=== PATIENT | female | born 1935 | race Caucasian/White ===

== ENCOUNTER 2020-09-16 15:25 | IRF | payer MEDICARE, MEDICAID, SELFPAY ==
--- NOTE | ~2020-09-16 | XR_ITS ---
EXAMINATION: XR barium swallow modified EXAM DATE: 09/25/2020 08:52 INDICATION: Dysphagia. TECHNIQUE: Modified barium esophagram was performed by myself to administered fluoroscopy, in conjun ction with speech pathologist who administered barium in varying consistencies as per speech patholog ist documentation. This was recorded on tape. The DAP for this procedure was 6 Gycm2. FINDINGS: Oral stage: Adequate function. Pharyngeal phase: Vallecular and piriform sinus pooling. Laryngeal penetration: None. Aspiration: None. Laryngeal sensitivity: Present. IMPRESSION: Patient tolerated oral feedings in the upright position. Please refer to speech patholo gist findings and specific feeding recommendations. Reviewed, dictated and finalized at location A. IELD DEFENCE GUARD IMPRESSION: Patient tolerated oral feedings in the upright position. Please r efer to speech pathologist findings and specific feeding recommendations.
--- NOTE | ~2020-09-16 | XR_ITS ---
EXAMINATION: XR chest 1V portable DATE: 09/27/2020 17:53 INDICATION: Cough, shortness of breath and wheezing TECHNIQUE: frontal view of the chest was obtained. COMPARISON: None FINDINGS: Patient is rotated slightly towards the left. Opacity between the apex of the normal sized heart and the left costophrenic angle without blunting of the cardiophrenic angle of the medial left lung base most likely related to pericardial fat pad and/or lingular atelectasis. No other airspace opacities, pulmonary edema, pleural effusion or pneumothorax. Tortuous and atherosclerotic thoracic aorta. Shirley cystectomy clips in the right upper quadrant. IMPRESSION: 1. Opacity at the lateral left lung base most likely related to paracardial fat pad and/or lingular a telectasis with differential including less likely pneumonia. Reviewed, dictated and finalized at [facility] BAY TECHNICIAN IMPRESSION: 1. Opacity at the lateral left lung base most likely related to paracardial fat pad and/or lingular atelectasis with differential including less likely pneumo lavern.
[2020-09-16 15:15] VITALS: BMI 40.4
[2020-09-16 15:40] VITALS: BP 141/60; PULSE 70; RESP 18; TEMP 36.7; O2SAT 100
--- NOTE | 2020-09-16 16:48 | ADMGEN ---
This patient, Oly Calderon, was admitted to [facility] Room 222-01. Patient/family oriented to hospital policies and general routines including ID bracelet, bed and alarms, visiting hours, pain management, procedures, bathroom and other care routines, personal items, smoking policy, room service/diet, and visiting hours. Information on how to activate the Rapid Response Team has been discussed. Patient/Family are encouraged to report perceived risks to care and to ask questions if they do not understand what they are told or what they should do.
[2020-09-16] MEDS: HEPARIN SODIUM 5,000 UNITS/ML VIAL 5000 UNITS SUB-Q (20:19)
[2020-09-16] MEDS: NIMODIPINE 30MG CAPSULE PO (21:44)
[2020-09-16 22:00] VITALS: BP 145/67; PULSE 75; RESP 18; TEMP 36.2; O2SAT 97
[2020-09-17] MEDS: NIMODIPINE 30MG CAPSULE PO ×6 (01:06→23:24)
[2020-09-17] MEDS: HEPARIN SODIUM 5,000 UNITS/ML VIAL 5000 UNITS SUB-Q ×3 (05:32→21:09)
[2020-09-17 05:34] LABS: Basophils Percent Auto 0.7 % (0.2-1.2); Eosinophils Absolute Auto 0.2 K/mm3 (0-0.3); Eosinophils Percent Auto 3.4 % (0-4.4); Hematocrit 25.5 % (37.0-47.0); Hemoglobin 8.1 g/dL (12.0-15.0); Immature Granulocyte Absolute 0.04 K/mm3 (0.00-0.031); Immature Granulocyte Percent A 0.7 % (0-0.5); Lymphocytes Absolute Auto 1.71 K/mm3 (0.9-3.2); Mean Corpuscular HGB Conc 31.8 g/dl (32-36); Mean Corpuscular Hemoglobin 29.5 pg (26-34); Mean Corpuscular Volume 92.7 fl (80-100); Monocytes Absolute Auto 0.7 K/mm3 (0.1-0.6); Monocytes Percent Auto 12.1 % (2.6-8.5); Neutrophils Absolute Auto 2.9 K/mm3 (1.3-6.7); Neutrophils Percent Auto 52.1 % (45.5-73.1); Platelet Count Result 301 k/mm3 (150-375); Red Blood Count 2.75 M/mm3 (4.2-5.4); Red Cell Distribution Width 17.2 % (11.5-14.5); White Blood Count 5.5 K/mm3 (4.5-10.0)
[2020-09-17 05:49] LABS: Anion Gap 7 mmol/L (8-16); Blood Urea Nitrogen 20 mg/dL (7-17); Calcium 8.8 mg/dL (8.4-10.2); Carbon Dioxide 31 mmol/L (22-30); Chloride 102 mmol/L (98-107); Estimated CRCL calculation 29 ml/min; Estimated Glomerular Filt Rate 36; Glucose 97 mg/dL (65-105); Sodium 140 mmol/L (137-145)
[2020-09-17 06:00] VITALS: BP 137/67; PULSE 74; RESP 19; TEMP 36.3; O2SAT 97
[2020-09-17 08:30] VITALS: PULSE 78; RESP 18; O2SAT 97
[2020-09-17 08:40] VITALS: PULSE 76
[2020-09-17] MEDS: METOPROLOL SUCCINATE EXT REL 50 MG TABCR PO (08:40)
[2020-09-17] MEDS: FUROSEMIDE 40 MG TABLET PO (08:40)
[2020-09-17] MEDS: ATORVASTATIN 10 MG TABLET PO (08:40)
[2020-09-17] MEDS: PANTOPRAZOLE 40 MG TABLET PO (08:40)
[2020-09-17] MEDS: buPROPion HCL 75 MG TABLET PO (08:41)
--- NOTE | 2020-09-17 08:49 | WPDREHABHP ---
H&P: HPI History of Present Illness Date/Time: 09/17/20 08:49 Chief complaint: Subarachnoid Hemorrhage Narrative: Oly Calderon is a 85 year old femaleHISTORY OF PRESENT ILLNESS: The patient's primary rehab impairment category is []Brain dysfunction nontraumatic The etiologic diagnosis is [] subarachnoid hemorrhage I saw this patient [id number] on [] September 17, 2020 at 8:30 a.m. The patient is a [] 85 years old right-handed female with a past medical history of bronchial asthma, COPD, gout, and hypertension presented to a local hospital on September 03, 2020 with severe headaches. The patient reported a sudden onset of severe headache after eating lunch with associated nausea and vomiting. She was taken to a local hospital where CT scan of the head demonstrated a diffuse subarachnoid hemorrhage. The patient was transferred to [facility] for further evaluation and management. CTA demonstrated a left MCA aneurysm Gallardo and Willson upon arrival was 3 with a Barber grade [address] Neurosurgery was consulted and the patient was admitted to Neurosurgery ICU. The patient was placed on Keppra 500 mg b.i.d. seizure prophylaxis and nimodipine for vasospasm prophylaxis. Cerebral angiogram was performed on September 04, [address] rivas for better characterization of angio architecture of the left middle cerebral artery bifurcation aneurysm the angiogram identified a left MCA bifurcation and left posteriorKatie in artery origin aneurysm, along with small right posterior communicating artery infundibulum. The patient underwent a left craniotomy for clipping of the aneurysm on September 04, 2020 with EVD insertion. Postoperatively the patient was extubated, she did require supplemental oxygen to maintain oxygen saturations but is now on room air. CASE FINISHING MACHINE ADJUSTER evaluated the patient and a modified barium swallow was performed on September 08, 2020 and the patient was placed on mechanical soft diet with nectar thickened liquids. She did have a bout of choking on September 12, 2020 and was made NPO with an NG-tube, the patient was re-evaluated by speech on September 14, 2020 and once again advanced to mechanical soft diet with nectar thickened liquids. She completed Keppra for seizure prophylaxis. She remains on Nimotop 60 mg q.4 hours oral for neuro protection. EVD was removed on September 12, 2020. Physical examination continues to reveal impaired balance decreased gross motor control and impaired mobility. She remains globally aphasic and is in Angelita 10 with her ability to onset simple questions. She is awake alert oriented times 2 to 3. She is on subcutaneous heparin for DVT prophylaxis with plan to DC with patient's consistently ambulating 150ft COVID the patient has not traveled outside the [place] or had contact with someone who is ill that has traveled outside the [place] in the past 21 days. The patient has not traveled to an area of the [place] that is experiencing known transmission of the Coronavirus and has not had close personal contact with anyone that has the patient does not have a fever the patient is not experiencing lower respiratory illness symptoms. Therapy was initiated at the acute care facility and the patient transferred to us from [facility] on September 16, 2020 FALLS OR SURGERIES: the patient has had major surgery this admission. The patient has had no falls in the past year. The patient has had no falls with injury in the past year. PAST MEDICAL HISTORY: Asthma, COPD, gout, hypertension, osteoporosis, pneumonia, syncope. PAST SURGICAL HISTORY: Appendectomy, cholecystectomy. SOCIAL HISTORY: Nonsmoker no alcohol or drug abuse FAMILY HISTORY: mother is diabetic type 2 who has history of cancer and a child has history of hypertension PRIOR LEVEL OF FUNCTION: Eating was [INDEPENDENT] Oral Care was [INDEPENDENT] Toileting Hygiene was [INDEPENDENT] Shower/Bathing was [INDEPENDENT] Upp
[2020-09-17 13:17] VITALS: BMI 40.4
[2020-09-17 14:00] VITALS: BP 146/58; PULSE 80; RESP 18; TEMP 37.3; O2SAT 99
--- NOTE | 2020-09-17 17:20 | ADMGEN ---
Late Entry. Patient admitted 09/16/2020 at 16:48. This patient, Oly Calderon, was admitted to [facility] Room 222-01. Patient/family oriented to hospital policies and general routines including ID bracelet, bed and alarms, visiting hours, pain management, procedures, bathroom and other care routines, personal items, smoking policy, room service/diet, and visiting hours. Information on how to activate the Rapid Response Team has been discussed. Patient/Family are encouraged to report perceived risks to care and to ask questions if they do not understand what they are told or what they should do.
[2020-09-17 21:44] VITALS: BP 134/59; PULSE 62; RESP 20; TEMP 36.5; O2SAT 96
[2020-09-17 22:22] VITALS: O2SAT 92
[2020-09-18] MEDS: NIMODIPINE 30MG CAPSULE PO ×6 (03:12→20:19)
[2020-09-18] MEDS: HEPARIN SODIUM 5,000 UNITS/ML VIAL 5000 UNITS SUB-Q ×3 (05:33→20:20)
[2020-09-18 06:00] VITALS: BP 102/67; PULSE 69; RESP 20; TEMP 36.3; O2SAT 97
[2020-09-18] MEDS: FUROSEMIDE 40 MG TABLET PO (09:46)
[2020-09-18] MEDS: PANTOPRAZOLE 40 MG TABLET PO (09:46)
[2020-09-18] MEDS: ATORVASTATIN 10 MG TABLET PO (09:46)
[2020-09-18 09:47] VITALS: PULSE 72
[2020-09-18] MEDS: METOPROLOL SUCCINATE EXT REL 50 MG TABCR PO (09:47)
[2020-09-18] MEDS: buPROPion HCL 75 MG TABLET PO (09:47)
[2020-09-18 14:00] VITALS: BP 126/53; PULSE 66; RESP 18; TEMP 36.4; O2SAT 96
--- NOTE | 2020-09-18 14:14 | RPD ---
INDIVIDUALIZED PLAN OF CARE FOR Oly Calderon Brief Synthesis of Pre-Admission Screen, Post-Admission Evaluation and Therapy Evaluations: The patient presents to rehab with a subarachnoid hemorrhage. Comorbidities include left MCA aneurysm, status post left craniotomy for clipping of left MCA and PComm aneurysms, asthma, COPD, gout, hypertension, headache, EVD insertion and removal, global aphasia, dysphagia, aspiration, respiratory insufficiency, and depression. The complexity of the patient's medical management, nursing, and therapy needs require an inpatient rehab hospital stay with a physician-led interdisciplinary team approach. The patient?s needs will be best met in an intensive program vs. at a lower level of care. The patient requires physician services for neurology services, medical oversight, and coordination of care. The patient needs physician monitoring and treatment of anemia, perioperative blood loss, monitoring for adverse reactions to new medications, monitoring of infection, and pain control. The patient requires nursing services for frequent neuro checks, anticoagulation therapy, medication management and education, pressure relief and skin care management, monitoring of labs, bowel and bladder training, and fall/safety precautions. Deficits include:ADLs, Balance, Cognition, Endurance, Family Training/Education, Mobility, Pain Management, ROM, Safety, Speech, Strength, Swallowing, and Transfers. Guest Service Representative/Case Management for: Discharge Planning and Patient/Family Counseling Physical Therapy: 5 days per week for 60 minutes. Treatments may include: Therapeutic Exercise, Gait Training, Neuromuscular Re-education, Transfer Training, Community Reintegration, Bed Mobility, Patient/Family Education, Wheelchair Mobility Group Therapy/Concurrent Therapy Rationales: -Improve attention span during functional activities in a distracted environment. -Enhance problem solving and/or adequate judgment skills during functional activities in a distracted environment. -Promote increased safety awareness in a distracted environment to reduce fall risk with functional tasks, transfers, and ambulation to allow a more safe, self-sufficient return to the home environment. -Improve dynamic balance skills to promote safety and independence with functional activities in a distracted environment for maximum gain. Occupational Therapy: 5 days per week for 60 minutes. Treatments may include: Therapeutic Exercise, Therapeutic Activity, Cognitive Training, Self-Care Transfer Training, Community Reintegration, Home Management, Patient/Family Education, Wheelchair Mobility Training, Energy Conservation Training Group Therapy/Concurrent Therapy Rationales: -Allow therapist to observe and teach generalization and carry-over of skills learned in individual therapy. -Enhance problem solving and sequencing skills during therapeutic activities in a distracted environment. -Promote increased safety awareness in a realistic setting to reduce fall risk with functional tasks due to visual and verbal distractions. -Increase functional level with ADLs, ADL transfers and use of adaptive equipment through therapeutic activities with others while promoting safety to allow a more safe, self-sufficient return home. Speech Therapy: 5 days per week for 60 minutes. Treatments may include: Dysphasia Therapy, Speech/Language/Communication Therapy, Cognitive Training, Patient/Family Education Group Therapy/Concurrent Therapy - Rationale: -Allow therapist to observe and teach generalization and carry-over of skills learned in individual therapy. -Improve comprehension skills with complex or abstract ideas through discussion in a realistic setting. -Enhance problem solving skills with complex issues during activities in a distracted environment. -Promote increased memory skills and concentration in a distracted environment for a safe transition home. -Improve attention and focus with langua
[2020-09-18 20:00] VITALS: PULSE 67; RESP 16; O2SAT 97
[2020-09-18 21:07] VITALS: BP 117/50; PULSE 67; RESP 16; TEMP 37.3; O2SAT 97
[2020-09-19] VITALS (7 sets, daily range): BP systolic 107–129; BP diastolic 42–54; PULSE 61–78; RESP 16–18; TEMP 36.6–37.2; O2SAT 92–97
[2020-09-19] MEDS: NIMODIPINE 30MG CAPSULE PO ×6 (10:32→20:27)
[2020-09-19] MEDS: ATORVASTATIN 10 MG TABLET PO (10:36)
[2020-09-19] MEDS: FUROSEMIDE 40 MG TABLET PO (10:36)
[2020-09-19] MEDS: buPROPion HCL 75 MG TABLET PO (10:36)
[2020-09-19] MEDS: PANTOPRAZOLE 40 MG TABLET PO (10:37)
[2020-09-19] MEDS: METOPROLOL SUCCINATE EXT REL 50 MG TABCR PO (10:37)
--- NOTE | 2020-09-19 12:10 | WPDNEURORHBP ---
Subjective Date/time seen: 09/19/20 12:10 85 years old has been admitted to the rehab floor with a diagnosis of brain dysfunction of nontraumatic in nature and secondary to subarachnoid hemorrhage. In addition to the comorbid conditions of bronchial asthma, COPD, gout, and hypertension. Her CTA demonstrated left MCA aneurysm which was clipped on September 04, 2020 and sent to see you. She was also started on Keppra for seizure prophylaxis and pneumo top 60 mg q.4 hours for 1 week to avoid the secondary spasm from the subarachnoid hemorrhage on today's visit she is communicative. Review of Systems Review of Systems: All systems reviewed & are unremarkable except as noted in HPI and below Functional Status Ambulation Ability Ability to Ambulate 10 Feet: Minimum Assistance X 1 Ability to Ambulate 50 Feet With 2 Turns: Minimum Assistance X 1 Ambulation Assistive Devices: Walker, Wheeled Exam Narrative: Exam Narrative: On examination today she is awake alert in no distress his speech nor dysphasic not dysarthric neck is supple heart regular lungs clear with no rhonchi or crepitation abdomen is soft nontender normal bowel sounds and neuro unchanged Objective Data Vital Signs Vital Signs: Vital Signs - 24 hr 09/18/20 14:00 09/18/20 20:00 09/18/20 21:07 Temperature 36.4 C L 37.3 C Pulse Rate 66 67 67 Respiratory Rate 18 16 16 Blood Pressure 126/53 L 117/50 L Pulse Oximetry 96 97 97 09/19/20 06:00 09/19/20 10:23 09/19/20 10:37 Temperature 37.2 C Pulse Rate 70 68 Respiratory Rate 16 Blood Pressure 107/54 L Pulse Oximetry 96 92 Intake/Output Intake/Output: Intake & Output 09/16/20 09/17/20 09/18/20 09/19/20 23:59 23:59 23:59 23:59 Intake Total 120 480 460 240 Balance 120 480 460 240 Meds/Results Medications: Active Medications Generic Name Dose Route Start Last Admin Trade Name Freq PRN Reason Stop Dose Admin Acetaminophen 500 mg 09/16/20 16:33 Acetaminophen 500 Mg Tablet PO Q4H PRN Fever Or Pain Albuterol 2 puff 09/16/20 16:33 Albuterol Sulfate (*Sp) Aerosol 1 Puff INHALATION Q4H PRN Shortness Of Breath Or Wheezing Artificial Tears 1 drop 09/16/20 17:11 Artificial Tears Op Soln 15 Ml Bottle EACH EYE QID PRN Dry Eye(s) Atorvastatin Calcium 10 mg 09/17/20 09:00 09/19/20 10:36 Atorvastatin 10 Mg Tablet PO 10 mg DAILY KATHLEEN Administration Budesonide/Formoterol Fumarate 2 puff 09/16/20 20:00 09/19/20 10:19 Budesonide/Form 160-4.5 Mcg (*Sp) INHALATION 2 puff Q12HRT KATHLEEN Administration Bupropion HCl 75 mg 09/17/20 09:00 09/19/20 10:36 Bupropion Hcl 75 Mg Tablet PO 75 mg DAILY KATHLEEN Administration Furosemide 40 mg 09/17/20 09:00 09/19/20 10:36 Furosemide 40 Mg Tablet PO 40 mg DAILY KATHLEEN Administration Heparin Sodium (Porcine) 5,000 units 09/16/20 22:00 09/18/20 20:20 Heparin Sodium 5,000 Units/Ml Vial SUB-Q 5,000 units Q8HR KATHLEEN Administration Melatonin 3 mg 09/16/20 19:28 Melatonin 3 Mg Tablet PO HS PRN Sleep Metoprolol Succinate 50 mg 09/17/20 09:00 09/19/20 10:37 Metoprolol Succinate Ext Rel 50 Mg Tabcr PO 50 mg DAILY KATHLEEN Administration Montelukast Sodium 10 mg 09/16/20 17:13 Montelukast Sodium 10 Mg Tablet PO DAILY PRN Shortness Of Breath Nimodipine 30mg 0 mg 09/16/20 21:00 09/19/20 10:32 Capsule PO 09/23/20 17:01 60 mg Q4HR KATHLEEN Administration Ondansetron HCl 4 mg 09/16/20 16:51 Ondansetron Hcl Odt 4 Mg Tablet PO Q8H PRN Nausea Pantoprazole Sodium 40 mg 09/17/20 09:00 09/19/20 10:37 Pantoprazole 40 Mg Tablet PO 40 mg QAM KATHLEEN Administration Tiotropium [place] 1 cap 09/17/20 09:00 09/19/20 10:19 Tiotropium [place] 18 Mcg Cap Diskus INHALATION 1 cap QAM KATHLEEN Administration Progress Note: A&P Assessment and Plan (1) Subarachnoid hemorrhage: Code(s): I60.9 - Nontraumatic subarachnoid h
[2020-09-19] MEDS: HEPARIN SODIUM 5,000 UNITS/ML VIAL 5000 UNITS SUB-Q ×3 (14:00→20:27)
[2020-09-20] MEDS: NIMODIPINE 30MG CAPSULE PO ×6 (00:54→20:26)
[2020-09-20] MEDS: HEPARIN SODIUM 5,000 UNITS/ML VIAL 5000 UNITS SUB-Q ×3 (05:05→20:26)
[2020-09-20 06:00] VITALS: BP 122/57; PULSE 71; RESP 18; TEMP 36.8; O2SAT 95
[2020-09-20] MEDS: MEGESTROL ACETATE (*CHEMO) ORAL SUSP 40 MG/ML SYR 400 MG PO (08:31)
[2020-09-20] MEDS: ATORVASTATIN 10 MG TABLET PO (08:31)
[2020-09-20] MEDS: PANTOPRAZOLE 40 MG TABLET PO (08:31)
[2020-09-20] MEDS: buPROPion HCL 75 MG TABLET PO (08:31)
[2020-09-20] MEDS: FUROSEMIDE 40 MG TABLET PO (08:31)
[2020-09-20 08:32] VITALS: PULSE 71
[2020-09-20] MEDS: METOPROLOL SUCCINATE EXT REL 50 MG TABCR PO (08:32)
--- NOTE | 2020-09-20 11:55 | WPDNEURORHBP ---
Subjective Date/time seen: 09/20/20 11:55 85 years old lady has been admitted to the rehab floor for the diagnosis of brain dysfunction of nontraumatic in nature and secondary to subarachnoid hemorrhage in addition to the multiple comorbid condition as mentioned before. She is not complaining of any headache .there is no change in her neurological findings. She is comfortable sitting in chair. Review of Systems Review of Systems: All systems reviewed & are unremarkable except as noted in HPI and below Functional Status Ambulation Ability Ability to Ambulate 10 Feet: Minimum Assistance X 1 Ability to Ambulate 50 Feet With 2 Turns: Minimum Assistance X 1 Ambulation Assistive Devices: Walker, Wheeled Exam Narrative: Exam Narrative: Awake alert follow the instruction his speech not dysarthric nor dysphasic heart regular lungs clear neuro unchanged Objective Data Vital Signs Vital Signs: Vital Signs - 24 hr 09/19/20 14:00 09/19/20 20:00 09/19/20 21:07 Temperature 36.6 C 37.2 C Pulse Rate 78 61 61 Respiratory Rate 18 18 18 Blood Pressure 129/42 L 123/50 L Pulse Oximetry 95 97 97 09/20/20 06:00 09/20/20 08:32 Temperature 36.8 C Pulse Rate 71 71 Respiratory Rate 18 Blood Pressure 122/57 L Pulse Oximetry 95 Intake/Output Intake/Output: Intake & Output 09/17/20 09/18/20 09/19/20 09/20/20 23:59 23:59 23:59 23:59 Intake Total 480 460 480 240 Balance 480 460 480 240 Meds/Results Medications: Active Medications Generic Name Dose Route Start Last Admin Trade Name Freq PRN Reason Stop Dose Admin Acetaminophen 500 mg 09/16/20 16:33 Acetaminophen 500 Mg Tablet PO Q4H PRN Fever Or Pain Albuterol 2 puff 09/16/20 16:33 Albuterol Sulfate (*Sp) Aerosol 1 Puff INHALATION Q4H PRN Shortness Of Breath Or Wheezing Artificial Tears 1 drop 09/16/20 17:11 Artificial Tears Op Soln 15 Ml Bottle EACH EYE QID PRN Dry Eye(s) Atorvastatin Calcium 10 mg 09/17/20 09:00 09/20/20 08:31 Atorvastatin 10 Mg Tablet PO 10 mg DAILY KATHLEEN Administration Budesonide/Formoterol Fumarate 2 puff 09/16/20 20:00 11/15/20 08:21 Budesonide/Form 160-4.5 Mcg (*Sp) INHALATION 2 puff Q12HRT KATHLEEN Administration Bupropion HCl 75 mg 09/17/20 09:00 09/20/20 08:31 Bupropion Hcl 75 Mg Tablet PO 75 mg DAILY KATHLEEN Administration Furosemide 40 mg 09/17/20 09:00 09/20/20 08:31 Furosemide 40 Mg Tablet PO 40 mg DAILY KATHLEEN Administration Heparin Sodium (Porcine) 5,000 units 09/16/20 22:00 09/20/20 05:05 Heparin Sodium 5,000 Units/Ml Vial SUB-Q 5,000 units Q8HR KATHLEEN Administration Megestrol Acetate 400 mg 09/20/20 09:00 09/20/20 08:31 Megestrol Acetate (*Chemo) Oral Susp 40 Mg/Ml Syr PO 400 mg QAM KATHLEEN Administration Melatonin 3 mg 09/16/20 19:28 Melatonin 3 Mg Tablet PO HS PRN Sleep Metoprolol Succinate 50 mg 09/17/20 09:00 09/20/20 08:32 Metoprolol Succinate Ext Rel 50 Mg Tabcr PO 50 mg DAILY KATHLEEN Administration Montelukast Sodium 10 mg 09/16/20 17:13 Montelukast Sodium 10 Mg Tablet PO DAILY PRN Shortness Of Breath Nimodipine 30mg 0 mg 09/16/20 21:00 09/20/20 08:33 Capsule PO 09/23/20 17:01 60 mg Q4HR KATHLEEN Administration Ondansetron HCl 4 mg 09/16/20 16:51 Ondansetron Hcl Odt 4 Mg Tablet PO Q8H PRN Nausea Pantoprazole Sodium 40 mg 09/17/20 09:00 09/20/20 08:31 Pantoprazole 40 Mg Tablet PO 40 mg QAM KATHLEEN Administration Tiotropium [place] 1 cap 09/17/20 09:00 09/20/20 08:21 Tiotropium [place] 18 Mcg Cap Diskus INHALATION 1 cap QAM KATHLEEN Administration Progress Note: A&P Assessment and Plan (1) Subarachnoid hemorrhage: Code(s): I60.9 - Nontraumatic subarachnoid hemorrhage, unspecified Status: Acute Additional Plan stable continue the management as such
[2020-09-20 14:00] VITALS: BP 139/57; PULSE 71; RESP 20; TEMP 36.8; O2SAT 100
[2020-09-20 20:26] VITALS: BP 118/47; PULSE 72; RESP 20; TEMP 36.1; O2SAT 97
[2020-09-20 21:33] VITALS: PULSE 60; RESP 18; O2SAT 95
[2020-09-21] MEDS: NIMODIPINE 30MG CAPSULE PO ×6 (01:10→20:49)
[2020-09-21 05:40] VITALS: BP 117/48; PULSE 64; RESP 22; TEMP 36.3; O2SAT 97
[2020-09-21] MEDS: HEPARIN SODIUM 5,000 UNITS/ML VIAL 5000 UNITS SUB-Q ×3 (06:02→20:50)
[2020-09-21] MEDS: buPROPion HCL 75 MG TABLET PO (08:37)
[2020-09-21] MEDS: MEGESTROL ACETATE (*CHEMO) ORAL SUSP 40 MG/ML SYR 400 MG PO (08:37)
[2020-09-21] MEDS: ATORVASTATIN 10 MG TABLET PO (08:37)
[2020-09-21 08:38] VITALS: PULSE 64
[2020-09-21] MEDS: PANTOPRAZOLE 40 MG TABLET PO (08:38)
[2020-09-21] MEDS: FUROSEMIDE 40 MG TABLET PO (08:38)
[2020-09-21] MEDS: METOPROLOL SUCCINATE EXT REL 50 MG TABCR PO (08:38)
--- NOTE | 2020-09-21 11:07 | WPDNEURORHBP ---
Subjective Date/time seen: 09/21/20 11:07 85 years old on the rehab floor for brain dysfunction secondary to subarachnoid hemorrhage continues to be stable no recent lab Review of Systems Review of Systems: All systems reviewed & are unremarkable except as noted in HPI and below Functional Status Ambulation Ability Ability to Ambulate 10 Feet: Contact Guard Ability to Ambulate 50 Feet With 2 Turns: Contact Guard Ability to Ambulate 150 Feet: Contact Guard Ambulation Assistive Devices: Walker, Wheeled Exam Narrative: Exam Narrative: awake alert his speech dysphasic but follows the instructions very well heart regular lungs clear neuro unchanged Objective Data Vital Signs Vital Signs: Vital Signs - 24 hr 09/20/20 14:00 09/20/20 20:26 09/20/20 21:33 Temperature 36.8 C 36.1 C L Pulse Rate 71 72 60 Respiratory Rate 20 20 18 Blood Pressure 139/57 L 118/47 L Pulse Oximetry 100 97 95 09/21/20 05:40 09/21/20 08:38 Temperature 36.3 C L Pulse Rate 64 64 Respiratory Rate 22 H Blood Pressure 117/48 L Pulse Oximetry 97 Intake/Output Intake/Output: Intake & Output 09/18/20 09/19/20 09/20/20 09/21/20 23:59 23:59 23:59 23:59 Intake Total 460 480 720 240 Balance 460 480 720 240 Meds/Results Medications: Active Medications Generic Name Dose Route Start Last Admin Trade Name Freq PRN Reason Stop Dose Admin Acetaminophen 500 mg 09/16/20 16:33 Acetaminophen 500 Mg Tablet PO Q4H PRN Fever Or Pain Albuterol 2 puff 09/16/20 16:33 Albuterol Sulfate (*Sp) Aerosol 1 Puff INHALATION Q4H PRN Shortness Of Breath Or Wheezing Artificial Tears 1 drop 09/16/20 17:11 Artificial Tears Op Soln 15 Ml Bottle EACH EYE QID PRN Dry Eye(s) Atorvastatin Calcium 10 mg 09/17/20 09:00 09/21/20 08:37 Atorvastatin 10 Mg Tablet PO 10 mg DAILY KATHLEEN Administration Budesonide/Formoterol Fumarate 2 puff 09/16/20 20:00 09/21/20 09:16 Budesonide/Form 160-4.5 Mcg (*Sp) INHALATION 2 puff Q12HRT KATHLEEN Administration Bupropion HCl 75 mg 09/17/20 09:00 09/21/20 08:37 Bupropion Hcl 75 Mg Tablet PO 75 mg DAILY KATHLEEN Administration Furosemide 40 mg 09/17/20 09:00 09/21/20 08:38 Furosemide 40 Mg Tablet PO 40 mg DAILY KATHLEEN Administration Heparin Sodium (Porcine) 5,000 units 09/16/20 22:00 09/21/20 06:02 Heparin Sodium 5,000 Units/Ml Vial SUB-Q 5,000 units Q8HR KATHLEEN Administration Megestrol Acetate 400 mg 09/20/20 09:00 09/21/20 08:37 Megestrol Acetate (*Chemo) Oral Susp 40 Mg/Ml Syr PO 400 mg QAM KATHLEEN Administration Melatonin 3 mg 09/16/20 19:28 Melatonin 3 Mg Tablet PO HS PRN Sleep Metoprolol Succinate 50 mg 09/17/20 09:00 09/21/20 08:38 Metoprolol Succinate Ext Rel 50 Mg Tabcr PO 50 mg DAILY KATHLEEN Administration Montelukast Sodium 10 mg 09/16/20 17:13 Montelukast Sodium 10 Mg Tablet PO DAILY PRN Shortness Of Breath Nimodipine 30mg 0 mg 09/16/20 21:00 09/21/20 08:43 Capsule PO 09/23/20 17:01 60 mg Q4HR KATHLEEN Administration Ondansetron HCl 4 mg 09/16/20 16:51 Ondansetron Hcl Odt 4 Mg Tablet PO Q8H PRN Nausea Pantoprazole Sodium 40 mg 09/17/20 09:00 09/21/20 08:38 Pantoprazole 40 Mg Tablet PO 40 mg QAM KATHLEEN Administration Tiotropium [place] 1 cap 09/17/20 09:00 09/21/20 09:16 Tiotropium [place] 18 Mcg Cap Diskus INHALATION 1 cap QAM KATHLEEN Administration Progress Note: A&P Assessment and Plan (1) Subarachnoid hemorrhage: Code(s): I60.9 - Nontraumatic subarachnoid hemorrhage, unspecified Status: Acute Additional Plan stable continue the treatment as such
--- NOTE | 2020-09-21 12:56 | PCPTNOTE ---
Oly Calderon was evaluated for a [] on 09/21/2020 by this physical therapist. The [] will resolve patient's mobility limitations and will be used for ADL's within the home. The patient can safely use the []. ?The [] will resolve the patient?s mobility deficits, including [].
--- NOTE | 2020-09-21 12:56 | PCPTNOTE ---
Oly Calderon was evaluated for a wheeled walker on 09/21/2020 by this physical therapist. The wheeled walker will resolve patient's mobility limitations and will be used for ADL's within the home. The patient can safely use the wheeled walker. ?The wheeled walker will resolve the patient?s mobility deficits, including impaired balance, decreased bilateral lower extremity strength and decreased endurance.
[2020-09-21 14:00] VITALS: BP 125/48; PULSE 72; RESP 18; TEMP 36.6; O2SAT 96
[2020-09-21 20:15] VITALS: PULSE 69; RESP 20; O2SAT 100
[2020-09-21 20:24] VITALS: PULSE 68; O2SAT 97
[2020-09-21 22:00] VITALS: BP 111/46; PULSE 69; RESP 20; TEMP 36.3; O2SAT 100
[2020-09-22] MEDS: NIMODIPINE 30MG CAPSULE PO ×6 (01:00→21:00)
[2020-09-22 05:34] VITALS: BP 116/48; PULSE 62; RESP 20; TEMP 36.4; O2SAT 98
[2020-09-22] MEDS: HEPARIN SODIUM 5,000 UNITS/ML VIAL 5000 UNITS SUB-Q ×3 (05:38→21:01)
[2020-09-22 10:12] VITALS: PULSE 62
[2020-09-22] MEDS: PANTOPRAZOLE 40 MG TABLET PO (10:12)
[2020-09-22] MEDS: METOPROLOL SUCCINATE EXT REL 50 MG TABCR PO (10:12)
[2020-09-22] MEDS: MEGESTROL ACETATE (*CHEMO) ORAL SUSP 40 MG/ML SYR 400 MG PO (10:12)
[2020-09-22] MEDS: FUROSEMIDE 40 MG TABLET PO (10:12)
[2020-09-22] MEDS: ATORVASTATIN 10 MG TABLET PO (10:13)
[2020-09-22] MEDS: buPROPion HCL 75 MG TABLET PO (10:13)
--- NOTE | 2020-09-22 11:01 | WPDNEURORHBP ---
Subjective Date/time seen: 09/22/20 11:01 85 years old with history of subarachnoid hemorrhage though generally she is stable but most likely she will be transferred to the assisted living on 09/30 she follows instructions very well but she is still impulsive and has been noted to be incontinent as well Review of Systems Review of Systems: All systems reviewed & are unremarkable except as noted in HPI and below Functional Status Ambulation Ability Ability to Ambulate 10 Feet: Contact Guard Ability to Ambulate 50 Feet With 2 Turns: Contact Guard Ability to Ambulate 150 Feet: Contact Guard Ambulation Assistive Devices: Walker, Wheeled Exam Narrative: Exam Narrative: on examination she is awake alert follows instructions very well his speech is rather slow and hesitant cranial examination is normal motor examination revealed her to have decreased strength in upper and lower extremities but no focal motor deficit reflexes sluggish plantars are downgoing heart regular lungs clear with no crepitations and abdomen is soft Objective Data Vital Signs Vital Signs: Vital Signs - 24 hr 09/21/20 14:00 09/21/20 20:15 09/21/20 20:24 Temperature 36.6 C Pulse Rate 72 69 68 Respiratory Rate 18 20 Blood Pressure 125/48 L Pulse Oximetry 96 100 97 09/21/20 22:00 09/22/20 05:34 09/22/20 10:12 Temperature 36.3 C L 36.4 C L Pulse Rate 69 62 62 Respiratory Rate 20 20 Blood Pressure 111/46 L 116/48 L Pulse Oximetry 100 98 Intake/Output Intake/Output: Intake & Output 09/19/20 09/20/20 09/21/20 09/22/20 23:59 23:59 23:59 23:59 Intake Total 480 720 440 120 Balance 480 720 440 120 Meds/Results Medications: Active Medications Generic Name Dose Route Start Last Admin Trade Name Freq PRN Reason Stop Dose Admin Acetaminophen 500 mg 09/16/20 16:33 Acetaminophen 500 Mg Tablet PO Q4H PRN Fever Or Pain Albuterol 2 puff 09/16/20 16:33 Albuterol Sulfate (*Sp) Aerosol 1 Puff INHALATION Q4H PRN Shortness Of Breath Or Wheezing Artificial Tears 1 drop 09/16/20 17:11 Artificial Tears Op Soln 15 Ml Bottle EACH EYE QID PRN Dry Eye(s) Atorvastatin Calcium 10 mg 09/17/20 09:00 09/22/20 10:13 Atorvastatin 10 Mg Tablet PO 10 mg DAILY KATHLEEN Administration Budesonide/Formoterol Fumarate 2 puff 09/16/20 20:00 09/22/20 09:37 Budesonide/Form 160-4.5 Mcg (*Sp) INHALATION 2 puff Q12HRT KATHLEEN Administration Bupropion HCl 75 mg 09/17/20 09:00 09/22/20 10:13 Bupropion Hcl 75 Mg Tablet PO 75 mg DAILY KATHLEEN Administration Furosemide 40 mg 09/17/20 09:00 09/22/20 10:12 Furosemide 40 Mg Tablet PO 40 mg DAILY KATHLEEN Administration Heparin Sodium (Porcine) 5,000 units 09/16/20 22:00 09/22/20 05:38 Heparin Sodium 5,000 Units/Ml Vial SUB-Q 5,000 units Q8HR KATHLEEN Administration Megestrol Acetate 400 mg 09/20/20 09:00 09/22/20 10:12 Megestrol Acetate (*Chemo) Oral Susp 40 Mg/Ml Syr PO 400 mg QAM KATHLEEN Administration Melatonin 3 mg 09/16/20 19:28 Melatonin 3 Mg Tablet PO HS PRN Sleep Metoprolol Succinate 50 mg 09/17/20 09:00 09/22/20 10:12 Metoprolol Succinate Ext Rel 50 Mg Tabcr PO 50 mg DAILY KATHLEEN Administration Montelukast Sodium 10 mg 09/16/20 17:13 Montelukast Sodium 10 Mg Tablet PO DAILY PRN Shortness Of Breath Nimodipine 30mg 0 mg 09/21/20 21:00 09/22/20 10:10 Capsule PO 09/23/20 17:01 30 mg Q4HR KATHLEEN Administration Ondansetron HCl 4 mg 09/16/20 16:51 Ondansetron Hcl Odt 4 Mg Tablet PO Q8H PRN Nausea Pantoprazole Sodium 40 mg 09/17/20 09:00 09/22/20 10:12 Pantoprazole 40 Mg Tablet PO 40 mg QAM KATHLEEN Administration Tiotropium [place] 1 cap 09/17/20 09:00 09/21/20 09:16 Tiotropium [place] 18 Mcg Cap Diskus INHALATION 1 cap QAM KATHLEEN Administration Progress Note: A&P Assessment and Plan (1) Subarachnoid hemorrhage: Code(s): I60.9 - N
--- NOTE | 2020-09-22 11:12 | PCDIET ---
Nutrition Follow-Up Complete: Nutrition Diagnosis: Inadequate oral intake related to subarchnoid hemorrage as evidenced by diet modifications and poor po intake. Nutrition Goal: Meet estimated nutritional needs Goal in progress. Patient consuming less than half of most meals on minced and moist diet with mildly thick liquids. Does receive Ensure Enlive TID. Nurse aid to notify RD if patient does not accept supplement. Recommend continuing liberalized diet until intakes improve. Anticipate improved appetite with addition of Megace. Last recorded weight is 97.2 kg. Recommend obtaining new weight. Bowel Motility: Last BM on 09/20/20 per nursing flowsheet. Labs Reviewed: No new labs available. Meds Noted: Albuterol, Symbicort, Lasix, Megace (started 09/20/20), Nimodipine, Protonix Additional Notes: Frontal head with healed incision. No documented pressure ulcers. Nutrition Monitoring and Evaluation: Will monitor every 3 days.
--- NOTE | 2020-09-22 12:56 | PCPTNOTE ---
Oly Calderon was evaluated for a rollator on 09/22/2020 by this physical therapist assistant strength coach. The rollator will resolve patient's mobility limitations and will be used for ADL's within the home. The patient can safely use the rollator. ?The rollator will resolve the patient?s mobility deficits, including impaired balance, decreased endurance and strength.
[2020-09-22 14:00] VITALS: BP 112/60; PULSE 64; RESP 18; TEMP 36.6; O2SAT 100
[2020-09-22 20:00] VITALS: O2SAT 100
[2020-09-22 22:00] VITALS: BP 147/48; PULSE 59; RESP 19; TEMP 36.3; O2SAT 98
[2020-09-23] MEDS: NIMODIPINE 30MG CAPSULE PO ×5 (00:57→16:48)
[2020-09-23] MEDS: HEPARIN SODIUM 5,000 UNITS/ML VIAL 5000 UNITS SUB-Q ×2 (05:53→13:55)
[2020-09-23 06:00] VITALS: BP 118/49; PULSE 71; RESP 19; TEMP 36.7; O2SAT 99
[2020-09-23 09:10] VITALS: PULSE 70; PULSE 71; RESP 16; O2SAT 96
[2020-09-23] MEDS: PANTOPRAZOLE 40 MG TABLET PO (09:10)
[2020-09-23] MEDS: MEGESTROL ACETATE (*CHEMO) ORAL SUSP 40 MG/ML SYR 400 MG PO (09:10)
[2020-09-23] MEDS: METOPROLOL SUCCINATE EXT REL 50 MG TABCR PO (09:10)
[2020-09-23] MEDS: buPROPion HCL 75 MG TABLET PO (09:10)
[2020-09-23] MEDS: FUROSEMIDE 40 MG TABLET PO (09:10)
[2020-09-23] MEDS: ATORVASTATIN 10 MG TABLET PO (09:10)
[2020-09-23] MEDS: ACETAMINOPHEN 500 MG TABLET PO (12:29)
[2020-09-23 14:00] VITALS: BP 123/50; PULSE 71; RESP 20; TEMP 36.9; O2SAT 99
[2020-09-23 20:15] VITALS: PULSE 71; RESP 20; O2SAT 95
[2020-09-23 22:00] VITALS: BP 143/56; PULSE 71; RESP 20; TEMP 36.9; O2SAT 95
[2020-09-24] MEDS: HEPARIN SODIUM 5,000 UNITS/ML VIAL 5000 UNITS SUB-Q ×4 (03:23→21:13)
[2020-09-24 05:01] LABS: Basophils Percent Auto 0.6 % (0.2-1.2); Eosinophils Absolute Auto 0.1 K/mm3 (0-0.3); Eosinophils Percent Auto 1.7 % (0-4.4); Hematocrit 27.6 % (37.0-47.0); Hemoglobin 8.8 g/dL (12.0-15.0); Immature Granulocyte Absolute 0.02 K/mm3 (0.00-0.031); Immature Granulocyte Percent A 0.4 % (0-0.5); Lymphocytes Absolute Auto 1.83 K/mm3 (0.9-3.2); Lymphocytes Percent Auto 33.6 % (18.3-44.2); Mean Corpuscular HGB Conc 31.9 g/dl (32-36); Mean Corpuscular Hemoglobin 29.6 pg (26-34); Mean Corpuscular Volume 92.9 fl (80-100); Mean Platelet Volume 11.3 fl (7.4-10.4); Monocytes Absolute Auto 0.7 K/mm3 (0.1-0.6); Monocytes Percent Auto 12.7 % (2.6-8.5); Neutrophils Absolute Auto 2.8 K/mm3 (1.3-6.7); Platelet Count Result 296 k/mm3 (150-375); Red Blood Count 2.97 M/mm3 (4.2-5.4); Red Cell Distribution Width 17.5 % (11.5-14.5); White Blood Count 5.4 K/mm3 (4.5-10.0)
[2020-09-24 05:14] LABS: Anion Gap 4 mmol/L (8-16); Blood Urea Nitrogen 37 mg/dL (7-17); Calcium 9.4 mg/dL (8.4-10.2); Carbon Dioxide 35 mmol/L (22-30); Chloride 98 mmol/L (98-107); Estimated CRCL calculation 21 ml/min; Estimated Glomerular Filt Rate 24; Glucose 95 mg/dL (65-105); Potassium 4.4 mmol/L (3.4-5.0); Sodium 137 mmol/L (137-145)
[2020-09-24 06:00] VITALS: BP 117/55; PULSE 72; RESP 20; TEMP 37.1; O2SAT 96
[2020-09-24 08:00] VITALS: PULSE 72; RESP 20; O2SAT 96
[2020-09-24 08:45] VITALS: PULSE 72
[2020-09-24] MEDS: ATORVASTATIN 10 MG TABLET PO (08:45)
[2020-09-24] MEDS: FUROSEMIDE 40 MG TABLET PO (08:45)
[2020-09-24] MEDS: METOPROLOL SUCCINATE EXT REL 50 MG TABCR PO (08:45)
[2020-09-24] MEDS: buPROPion HCL 75 MG TABLET PO (08:45)
[2020-09-24] MEDS: MEGESTROL ACETATE (*CHEMO) ORAL SUSP 40 MG/ML SYR 400 MG PO (08:45)
[2020-09-24] MEDS: PANTOPRAZOLE 40 MG TABLET PO (08:46)
--- NOTE | 2020-09-24 11:37 | WPDNEURORHBP ---
Subjective Date/time seen: 09/24/20 11:37 85 years old lady with history of subarachnoid hemorrhage generally remains stable but has not been able to communicate very well and extremely slow in responses as per the speech therapist as well she has no new lab Review of Systems Review of Systems: All systems reviewed & are unremarkable except as noted in HPI and below Functional Status Ambulation Ability Ability to Ambulate 10 Feet: Standby Assistance Ability to Ambulate 50 Feet With 2 Turns: Standby Assistance Ability to Ambulate 150 Feet: Standby Assistance Ambulation Assistive Devices: Walker, Rollator Transfers Ability Ability to Transfer In/Out of Chair: Independent Exam Narrative: Exam Narrative: on examination she is awake alert smiles his speech is of low volume and hesitant pupils round regular feels the vision full extraocular movement full face symmetrical motor examination reveals generally decreased strength in upper and lower extremities and sluggish reflexes heart regular lungs clear abdomen is soft nontender Objective Data Vital Signs Vital Signs: Vital Signs - 24 hr 09/23/20 14:00 09/23/20 20:15 09/23/20 22:00 Temperature 36.9 C 36.9 C Pulse Rate 71 71 71 Respiratory Rate 20 20 20 Blood Pressure 123/50 L 143/56 H Pulse Oximetry 99 95 95 09/24/20 06:00 09/24/20 08:00 09/24/20 08:45 Temperature 37.1 C Pulse Rate 72 72 72 Respiratory Rate 20 20 Blood Pressure 117/55 L Pulse Oximetry 96 96 Intake/Output Intake/Output: Intake & Output 09/21/20 09/22/20 09/23/20 09/24/20 23:59 23:59 23:59 23:59 Intake Total 440 480 480 240 Balance 440 480 480 240 Meds/Results Medications: Active Medications Generic Name Dose Route Start Last Admin Trade Name Freq PRN Reason Stop Dose Admin Acetaminophen 500 mg 09/16/20 16:33 09/23/20 12:29 Acetaminophen 500 Mg Tablet PO 500 mg Q4H PRN Administration Fever Or Pain Albuterol 2 puff 09/16/20 16:33 Albuterol Sulfate (*Sp) Aerosol 1 Puff INHALATION Q4H PRN Shortness Of Breath Or Wheezing Artificial Tears 1 drop 09/16/20 17:11 Artificial Tears Op Soln 15 Ml Bottle EACH EYE QID PRN Dry Eye(s) Atorvastatin Calcium 10 mg 09/17/20 09:00 09/24/20 08:45 Atorvastatin 10 Mg Tablet PO 10 mg DAILY KATHLEEN Administration Budesonide/Formoterol Fumarate 2 puff 09/16/20 20:00 09/23/20 09:09 Budesonide/Form 160-4.5 Mcg (*Sp) INHALATION 2 puff Q12HRT KATHLEEN Administration Bupropion HCl 75 mg 09/17/20 09:00 09/24/20 08:45 Bupropion Hcl 75 Mg Tablet PO 75 mg DAILY KATHLEEN Administration Furosemide 40 mg 09/17/20 09:00 09/24/20 08:45 Furosemide 40 Mg Tablet PO 40 mg DAILY KATHLEEN Administration Heparin Sodium (Porcine) 5,000 units 09/16/20 22:00 09/24/20 05:52 Heparin Sodium 5,000 Units/Ml Vial SUB-Q 5,000 units Q8HR KATHLEEN Administration Megestrol Acetate 400 mg 09/20/20 09:00 09/24/20 08:45 Megestrol Acetate (*Chemo) Oral Susp 40 Mg/Ml Syr PO 400 mg QAM [facility] Administration Melatonin 3 mg 09/16/20 19:28 Melatonin 3 Mg Tablet PO HS PRN Sleep Metoprolol Succinate 50 mg 09/17/20 09:00 09/24/20 08:45 Metoprolol Succinate Ext Rel 50 Mg Tabcr PO 50 mg DAILY [facility] Administration Montelukast Sodium 10 mg 09/16/20 17:13 Montelukast Sodium 10 Mg Tablet PO DAILY PRN Shortness Of Breath Ondansetron HCl 4 mg 09/16/20 16:51 Ondansetron Hcl Odt 4 Mg Tablet PO Q8H PRN Nausea Pantoprazole Sodium 40 mg 09/17/20 09:00 09/24/20 08:46 Pantoprazole 40 Mg Tablet PO 40 mg QAM [facility] Administration Tiotropium [place] 1 cap 09/17/20 09:00 09/24/20 11:03 Tiotropium [place] 18 Mcg Cap Diskus INHALATION Not Given QAM [facility] Labs Labs: Laboratory Results - last 24 hr 09/24/20 09/24/20 04:43 04:44 WBC 5.4 RBC 2.97 L Hgb 8.8 L Hct 27.6 L MCV 92.9 MCH 29.6 MCHC 31.9 L RDW 17.5 H Plt
--- NOTE | 2020-09-24 13:32 | PCPTNOTE ---
Attempted PT treatment this afternoon. Pt too lethargic and reports being tired and to come back later. RN notified, will try again later.
[2020-09-24 14:00] VITALS: BP 144/62; PULSE 83; RESP 22; TEMP 36.6; O2SAT 97
[2020-09-24] MEDS: ALBUTEROL SULFATE (*SP) AEROSOL 1 PUFF 2 PUFF INHALATION (18:16)
[2020-09-24 18:20] VITALS: PULSE 78; RESP 20
[2020-09-24 22:00] VITALS: BP 138/57; PULSE 79; RESP 19; TEMP 36.3; O2SAT 97
[2020-09-25 06:00] VITALS: BP 111/55; PULSE 75; RESP 18; TEMP 36.4; O2SAT 96
[2020-09-25] MEDS: HEPARIN SODIUM 5,000 UNITS/ML VIAL 5000 UNITS SUB-Q ×3 (06:10→21:02)
[2020-09-25 08:27] VITALS: PULSE 78; RESP 16; O2SAT 92
[2020-09-25] MEDS: buPROPion HCL 75 MG TABLET PO (10:53)
[2020-09-25] MEDS: FUROSEMIDE 40 MG TABLET PO (10:53)
[2020-09-25] MEDS: ATORVASTATIN 10 MG TABLET PO (10:53)
[2020-09-25 10:54] VITALS: PULSE 78
[2020-09-25] MEDS: PANTOPRAZOLE 40 MG TABLET PO (10:54)
[2020-09-25] MEDS: METOPROLOL SUCCINATE EXT REL 50 MG TABCR PO (10:54)
[2020-09-25] MEDS: MEGESTROL ACETATE (*CHEMO) ORAL SUSP 40 MG/ML SYR 400 MG PO (10:54)
--- NOTE | 2020-09-25 12:54 | PCDIET ---
Nutrition Follow-Up Complete: Nutrition Diagnosis: Inadequate oral intake related to subarachnoid hemorrhage as evidenced by diet modifications and poor po intake. Nutrition Goal: Meet estimated nutritional needs Goal in progress. Patient with improved intake and ate 100% of first meal on soft and bite size diet, per nurse aid. Continues to take Ensure Enlive TID which is appropriate. MBS and speech therapy recommendations noted. Last recorded weight is 97.2 kg. Recommend obtaining new weight. Bowel Motility: Last documented BM on 09/20/20. Labs Reviewed: Hgb (8.8), Hct (27.6), BUN (37), Cr (2.0) Meds Noted: Albuterol, Lipitor, Symbicort, Lasix, Megace, Protonix, Spiriva Additional Notes: +Frontal head incision. No other skin issues reported. Nutrition Monitoring and Evaluation: Will monitor every 5 days.
[2020-09-25 14:00] VITALS: BP 128/64; PULSE 84; RESP 18; TEMP 36.6; O2SAT 96
[2020-09-25 20:54] VITALS: BP 133/58; PULSE 71; RESP 16; TEMP 37; O2SAT 94
[2020-09-26 05:25] VITALS: BP 147/77; PULSE 72; RESP 16; TEMP 37; O2SAT 100
[2020-09-26] MEDS: HEPARIN SODIUM 5,000 UNITS/ML VIAL 5000 UNITS SUB-Q ×3 (05:32→21:30)
[2020-09-26] MEDS: ACETAMINOPHEN 500 MG TABLET PO (08:16)
[2020-09-26 08:18] VITALS: PULSE 72
[2020-09-26] MEDS: METOPROLOL SUCCINATE EXT REL 50 MG TABCR PO (08:18)
[2020-09-26] MEDS: MEGESTROL ACETATE (*CHEMO) ORAL SUSP 40 MG/ML SYR 400 MG PO (08:18)
[2020-09-26] MEDS: PANTOPRAZOLE 40 MG TABLET PO (08:18)
[2020-09-26] MEDS: buPROPion HCL 75 MG TABLET PO (08:18)
[2020-09-26] MEDS: ATORVASTATIN 10 MG TABLET PO (08:19)
[2020-09-26] MEDS: FUROSEMIDE 40 MG TABLET PO (08:19)
[2020-09-26 10:30] VITALS: O2SAT 96
[2020-09-26] MEDS: polyethylene glycoL 3350 17 GM POWD.PACK PO (12:26)
[2020-09-26] MEDS: DOCUSATE SODIUM 100 MG CAPSULE PO ×2 (12:26→21:29)
--- NOTE | 2020-09-26 12:26 | WPDNEURORHBP ---
Subjective Date/time seen: 09/26/20 12:26 85 years old lady has been admitted to [facility] rehab floor with the ongoing diagnosis of subarachnoid hemorrhage perla Angus has been involved in the visit [place] therapy and occupational therapy but making rather slow responses slow progress Review of Systems Review of Systems: All systems reviewed & are unremarkable except as noted in HPI and below Functional Status Ambulation Ability Ability to Ambulate 10 Feet: Independent Ability to Ambulate 50 Feet With 2 Turns: Independent Ability to Ambulate 150 Feet: Independent Ambulation Assistive Devices: Walker, Rollator Transfers Ability Ability to Transfer In/Out of Chair: Standby Assistance Exam Narrative: Exam Narrative: on examination she is awake alert his speech is rather slow but follows instructions fairly well today's visit she definitely looks more comfortable more smiling and walking with the physical therapists in the [place] without any difficulties ear nose throat examination normal neck supple heart regular lungs clear abdomen is soft neuro essentially unchanged but definitely general condition improving Objective Data Vital Signs Vital Signs: Vital Signs - 24 hr 09/25/20 14:00 09/25/20 20:54 09/26/20 05:25 Temperature 36.6 C 37.0 C 37.0 C Pulse Rate 84 71 72 Respiratory Rate 18 16 16 Blood Pressure 128/64 133/58 L 147/77 H Pulse Oximetry 96 94 100 09/26/20 08:18 09/26/20 10:30 Temperature Pulse Rate 72 Respiratory Rate Blood Pressure Pulse Oximetry 96 Intake/Output Intake/Output: Intake & Output 09/23/20 09/24/20 09/25/20 09/26/20 23:59 23:59 23:59 23:59 Intake Total 480 540 580 240 Balance 480 540 580 240 Meds/Results Medications: Active Medications Generic Name Dose Route Start Last Admin Trade Name Freq PRN Reason Stop Dose Admin Acetaminophen 500 mg 09/16/20 16:33 09/26/20 08:16 Acetaminophen 500 Mg Tablet PO 500 mg Q4H PRN Administration Fever Or Pain Albuterol 2 puff 09/16/20 16:33 09/24/20 18:16 Albuterol Sulfate (*Sp) Aerosol 1 Puff INHALATION 2 puff Q4H PRN Administration Shortness Of Breath Or Wheezing Artificial Tears 1 drop 09/16/20 17:11 Artificial Tears Op Soln 15 Ml Bottle EACH EYE QID PRN Dry Eye(s) Atorvastatin Calcium 10 mg 09/17/20 09:00 09/26/20 08:19 Atorvastatin 10 Mg Tablet PO 10 mg DAILY KATHLEEN Administration Budesonide/Formoterol Fumarate 2 puff 09/16/20 20:00 09/26/20 10:24 Budesonide/Form 160-4.5 Mcg (*Sp) INHALATION 2 puff Q12HRT KATHLEEN Administration Bupropion HCl 75 mg 09/17/20 09:00 09/26/20 08:18 Bupropion Hcl 75 Mg Tablet PO 75 mg DAILY KATHLEEN Administration Docusate Sodium 100 mg 09/26/20 09:00 Docusate Sodium 100 Mg Capsule PO Q12HR KATHLEEN Furosemide 40 mg 09/17/20 09:00 09/26/20 08:19 Furosemide 40 Mg Tablet PO 40 mg DAILY KATHLEEN Administration Heparin Sodium (Porcine) 5,000 units 09/16/20 22:00 09/26/20 05:32 Heparin Sodium 5,000 Units/Ml Vial SUB-Q 5,000 units Q8HR KATHLEEN Administration Megestrol Acetate 400 mg 09/20/20 09:00 09/26/20 08:18 Megestrol Acetate (*Chemo) Oral Susp 40 Mg/Ml Syr PO 400 mg QAM KATHLEEN Administration Melatonin 3 mg 09/16/20 19:28 Melatonin 3 Mg Tablet PO HS PRN Sleep Metoprolol Succinate 50 mg 09/17/20 09:00 09/26/20 08:18 Metoprolol Succinate Ext Rel 50 Mg Tabcr PO 50 mg DAILY KATHLEEN Administration Montelukast Sodium 10 mg 09/16/20 17:13 Montelukast Sodium 10 Mg Tablet PO DAILY PRN Shortness Of Breath Ondansetron HCl 4 mg 09/16/20 16:51 Ondansetron Hcl Odt 4 Mg Tablet PO Q8H PRN Nausea Pantoprazole Sodium 40 mg 09/17/20 09:00 09/26/20 08:18 Pantoprazole 40 Mg Tablet PO 40 mg QAM [facility] Administration Polyethylene Glycol 17 gm 09/26/20 09:00 Polyethylene Glycol 3350 17 Gm Powd.Pack PO QAM [facility] Tiotropium [place] 1 cap
[2020-09-26 14:00] VITALS: BP 146/70; PULSE 76; RESP 20; TEMP 36.5; O2SAT 99
[2020-09-26] MEDS: ALBUTEROL SULFATE (*SP) AEROSOL 1 PUFF 2 PUFF INHALATION (17:43)
[2020-09-26 20:23] VITALS: BP 107/81; PULSE 70; RESP 18; TEMP 36.3; O2SAT 98
[2020-09-27 04:47] VITALS: BP 134/58; PULSE 76; RESP 20; TEMP 36.3; O2SAT 96
[2020-09-27] MEDS: HEPARIN SODIUM 5,000 UNITS/ML VIAL 5000 UNITS SUB-Q ×3 (05:17→20:35)
[2020-09-27 08:34] VITALS: PULSE 74
[2020-09-27] MEDS: MEGESTROL ACETATE (*CHEMO) ORAL SUSP 40 MG/ML SYR 400 MG PO (08:34)
[2020-09-27] MEDS: ATORVASTATIN 10 MG TABLET PO (08:34)
[2020-09-27] MEDS: METOPROLOL SUCCINATE EXT REL 50 MG TABCR PO (08:34)
[2020-09-27] MEDS: DOCUSATE SODIUM 100 MG CAPSULE PO ×2 (08:35→20:34)
[2020-09-27] MEDS: polyethylene glycoL 3350 17 GM POWD.PACK PO (08:35)
[2020-09-27] MEDS: PANTOPRAZOLE 40 MG TABLET PO (08:35)
[2020-09-27] MEDS: buPROPion HCL 75 MG TABLET PO (08:35)
[2020-09-27] MEDS: FUROSEMIDE 40 MG TABLET PO (08:35)
[2020-09-27 13:00] VITALS: PULSE 86; O2SAT 96
[2020-09-27 14:00] VITALS: BP 157/71; PULSE 93; RESP 18; TEMP 35.8; O2SAT 99
[2020-09-27] MEDS: ALBUTEROL SULFATE (*SP) AEROSOL 1 PUFF 2 PUFF INHALATION ×2 (14:58→20:44)
--- NOTE | 2020-09-27 17:45 | PC.NURSE ---
pt started having a coughing fit while eating supper. Pt stopped eating but has continued to cough. MD updated and received order for a chest x ray. will continue to monitor.
[2020-09-27 20:00] VITALS: PULSE 88; RESP 20; O2SAT 95
[2020-09-27] MEDS: MONTELUKAST SODIUM 10 MG TABLET PO (20:35)
[2020-09-27 22:00] VITALS: BP 140/62; PULSE 88; RESP 20; TEMP 36.6; O2SAT 95
[2020-09-28] MEDS: HEPARIN SODIUM 5,000 UNITS/ML VIAL 5000 UNITS SUB-Q ×3 (05:06→20:19)
[2020-09-28 06:00] VITALS: BP 148/76; PULSE 78; RESP 18; TEMP 36.6; O2SAT 97
[2020-09-28] MEDS: MEGESTROL ACETATE (*CHEMO) ORAL SUSP 40 MG/ML SYR 400 MG PO (08:36)
[2020-09-28] MEDS: buPROPion HCL 75 MG TABLET PO (08:36)
[2020-09-28 08:37] VITALS: PULSE 78
[2020-09-28] MEDS: DOCUSATE SODIUM 100 MG CAPSULE PO ×2 (08:37→20:19)
[2020-09-28] MEDS: polyethylene glycoL 3350 17 GM POWD.PACK PO (08:37)
[2020-09-28] MEDS: ATORVASTATIN 10 MG TABLET PO (08:37)
[2020-09-28] MEDS: PANTOPRAZOLE 40 MG TABLET PO (08:37)
[2020-09-28] MEDS: FUROSEMIDE 40 MG TABLET PO (08:37)
[2020-09-28] MEDS: METOPROLOL SUCCINATE EXT REL 50 MG TABCR PO (08:37)
--- NOTE | 2020-09-28 10:05 | WPDNEURORHBP ---
Subjective Date/time seen: 09/28/20 10:05 85 years old lady has been admitted to [facility] rehab floor with ongoing diagnosis of subarachnoid hemorrhage her most recent lab reveals WBC 5.4 with hemoglobin 8.8 and platelet count of 296 BUN 37 at the time of admission it was 20 she might be dry post the fluids and the creatinine is only so 2.0 x-ray chest yesterday was unremarkable and modified barium swallow was okay Review of Systems Review of Systems: All systems reviewed & are unremarkable except as noted in HPI and below Functional Status Ambulation Ability Ability to Ambulate 10 Feet: Standby Assistance Ability to Ambulate 50 Feet With 2 Turns: Standby Assistance Ability to Ambulate 150 Feet: Independent Ambulation Assistive Devices: Walker, Rollator Transfers Ability Ability to Transfer In/Out of Chair: Standby Assistance Exam Narrative: Exam Narrative: on examination today she is awake alert cooperative in no obvious acute distress his speech nor dysphasic no dysarthric heart regular lungs clear abdomen is soft and neurological examination is unchanged Objective Data Vital Signs Vital Signs: Vital Signs - 24 hr 09/27/20 13:00 09/27/20 14:00 09/27/20 20:00 Temperature 35.8 C L Pulse Rate 86 93 88 Respiratory Rate 18 20 Blood Pressure 157/71 H Pulse Oximetry 96 99 95 09/27/20 22:00 09/28/20 06:00 09/28/20 08:37 Temperature 36.6 C 36.6 C Pulse Rate 88 78 78 Respiratory Rate 20 18 Blood Pressure 140/62 148/76 H Pulse Oximetry 95 97 Intake/Output Intake/Output: Intake & Output 09/25/20 09/26/20 09/27/20 09/28/20 23:59 23:59 23:59 23:59 Intake Total 580 840 720 360 Balance 580 840 720 360 Meds/Results Medications: Active Medications Generic Name Dose Route Start Last Admin Trade Name Freq PRN Reason Stop Dose Admin Acetaminophen 500 mg 09/16/20 16:33 09/26/20 08:16 Acetaminophen 500 Mg Tablet PO 500 mg Q4H PRN Administration Fever Or Pain Albuterol 2 puff 09/16/20 16:33 09/27/20 20:44 Albuterol Sulfate (*Sp) Aerosol 1 Puff INHALATION 2 puff Q4H PRN Administration Shortness Of Breath Or Wheezing Artificial Tears 1 drop 09/16/20 17:11 Artificial Tears Op Soln 15 Ml Bottle EACH EYE QID PRN Dry Eye(s) Atorvastatin Calcium 10 mg 09/17/20 09:00 09/28/20 08:37 Atorvastatin 10 Mg Tablet PO 10 mg DAILY KATHLEEN Administration Budesonide/Formoterol Fumarate 2 puff 09/16/20 20:00 09/27/20 20:44 Budesonide/Form 160-4.5 Mcg (*Sp) INHALATION 2 puff Q12HRT KATHLEEN Administration Bupropion HCl 75 mg 09/17/20 09:00 09/28/20 08:36 Bupropion Hcl 75 Mg Tablet PO 75 mg DAILY KATHLEEN Administration Docusate Sodium 100 mg 09/26/20 09:00 09/28/20 08:37 Docusate Sodium 100 Mg Capsule PO 100 mg Q12HR KATHLEEN Administration Furosemide 40 mg 09/17/20 09:00 09/28/20 08:37 Furosemide 40 Mg Tablet PO 40 mg DAILY KATHLEEN Administration Heparin Sodium (Porcine) 5,000 units 09/16/20 22:00 09/28/20 05:06 Heparin Sodium 5,000 Units/Ml Vial SUB-Q 5,000 units Q8HR KATHLEEN Administration Megestrol Acetate 400 mg 09/20/20 09:00 09/28/20 08:36 Megestrol Acetate (*Chemo) Oral Susp 40 Mg/Ml Syr PO 400 mg QAM KATHLEEN Administration Melatonin 3 mg 09/16/20 19:28 Melatonin 3 Mg Tablet PO HS PRN Sleep Metoprolol Succinate 50 mg 09/17/20 09:00 09/28/20 08:37 Metoprolol Succinate Ext Rel 50 Mg Tabcr PO 50 mg DAILY KATHLEEN Administration Montelukast Sodium 10 mg 09/27/20 21:00 09/27/20 20:35 Montelukast Sodium 10 Mg Tablet PO 10 mg HS KATHLEEN Administration Ondansetron HCl 4 mg 09/16/20 16:51 Ondansetron Hcl Odt 4 Mg Tablet PO Q8H PRN Nausea Pantoprazole Sodium 40 mg 09/17/20 09:00 09/28/20 08:37 Pantoprazole 40 Mg Tablet PO 40 mg QAM KATHLEEN Administration Polyethylene Glycol 17 gm 09/26/20 09:00 09/28/20 08:37 Polyethylene Glycol 3350 17 Gm Powd.Pack PO 17
[2020-09-28 12:24] LABS: Anion Gap 11 mmol/L (8-16); Blood Urea Nitrogen 38 mg/dL (7-17); Calcium 9.6 mg/dL (8.4-10.2); Carbon Dioxide 31 mmol/L (22-30); Chloride 99 mmol/L (98-107); Estimated CRCL calculation 24 ml/min; Estimated Glomerular Filt Rate 29; Glucose 117 mg/dL (65-105); Potassium 4.2 mmol/L (3.4-5.0); Sodium 141 mmol/L (137-145)
[2020-09-28 14:00] VITALS: BP 129/45; PULSE 89; RESP 16; TEMP 36.7; O2SAT 100
--- NOTE | 2020-09-28 17:54 | PC.NURSE ---
patient began coughing during supper, this nurse stayed with her during the episode, she did not lose her breath and her cough remained effective, she had choked on 'pudding like' cheesecake, no coughing reaction with thin liquids. laying comfortably in bed now, will pass on to always get patient up out of bed for meals, and monitor. (She was sitting up in the bed at 90degree angle)
--- NOTE | 2020-09-28 17:59 | PC.NURSE ---
called and asked respiratory at approx 1600 if patient had gotten her puffers as they are not initialed
[2020-09-28] MEDS: MONTELUKAST SODIUM 10 MG TABLET PO (20:19)
[2020-09-28 20:39] VITALS: BP 133/54; PULSE 79; RESP 18; TEMP 36.6; O2SAT 97
[2020-09-29] MEDS: HEPARIN SODIUM 5,000 UNITS/ML VIAL 5000 UNITS SUB-Q ×3 (05:43→22:06)
[2020-09-29 05:50] VITALS: BP 138/61; PULSE 79; RESP 14; TEMP 36.8; O2SAT 98
[2020-09-29 10:09] VITALS: PULSE 79
[2020-09-29] MEDS: FUROSEMIDE 40 MG TABLET PO (10:09)
[2020-09-29] MEDS: MEGESTROL ACETATE (*CHEMO) ORAL SUSP 40 MG/ML SYR 400 MG PO (10:09)
[2020-09-29] MEDS: buPROPion HCL 75 MG TABLET PO (10:09)
[2020-09-29] MEDS: DOCUSATE SODIUM 100 MG CAPSULE PO ×2 (10:09→22:05)
[2020-09-29] MEDS: METOPROLOL SUCCINATE EXT REL 50 MG TABCR PO (10:09)
[2020-09-29] MEDS: ATORVASTATIN 10 MG TABLET PO (10:09)
[2020-09-29] MEDS: PANTOPRAZOLE 40 MG TABLET PO (10:10)
[2020-09-29] MEDS: polyethylene glycoL 3350 17 GM POWD.PACK PO (10:18)
--- NOTE | 2020-09-29 11:11 | WPDNEURORHBP ---
Subjective Date/time seen: 09/29/20 11:11 85 years old lady has been admitted to [facility] rehab floor with ongoing diagnosis of subarachnoid hemorrhage she has been involved in the physical therapy and occupational therapy an active basis has no specific complaints on today's visit [place] situation was discussed and the team eating as well with her family Review of Systems Review of Systems: All systems reviewed & are unremarkable except as noted in HPI and below Functional Status Ambulation Ability Ability to Ambulate 10 Feet: Independent Ability to Ambulate 50 Feet With 2 Turns: Independent Ability to Ambulate 150 Feet: Independent Ambulation Assistive Devices: Walker, Rollator Transfers Ability Ability to Transfer In/Out of Chair: Independent Exam Narrative: Exam Narrative: on examination she continues to be awake alert cooperative though she is somewhat slow in her responses but follows instructions fairly well and very smiley his speech is of low volume not dysphasic no dysarthric heart regular with no murmur lungs clear to auscultation abdomen is soft with no organomegaly and no tenderness neurological is she is awake alert follows instructions fairly well and otherwise examination is unchanged Objective Data Vital Signs Vital Signs: Vital Signs - 24 hr 09/28/20 14:00 09/28/20 20:39 09/29/20 05:50 Temperature 36.7 C 36.6 C 36.8 C Pulse Rate 89 79 79 Respiratory Rate 16 18 14 Blood Pressure 129/45 L 133/54 L 138/61 Pulse Oximetry 100 97 98 09/29/20 10:09 Temperature Pulse Rate 79 Respiratory Rate Blood Pressure Pulse Oximetry Intake/Output Intake/Output: Intake & Output 09/26/20 09/27/20 09/28/20 09/29/20 23:59 23:59 23:59 23:59 Intake Total 840 720 700 240 Balance 840 720 700 240 Meds/Results Medications: Active Medications Generic Name Dose Route Start Last Admin Trade Name Freq PRN Reason Stop Dose Admin Acetaminophen 500 mg 09/16/20 16:33 09/26/20 08:16 Acetaminophen 500 Mg Tablet PO 500 mg Q4H PRN Administration Fever Or Pain Albuterol 2 puff 09/16/20 16:33 09/27/20 20:44 Albuterol Sulfate (*Sp) Aerosol 1 Puff INHALATION 2 puff Q4H PRN Administration Shortness Of Breath Or Wheezing Artificial Tears 1 drop 11/11/20 17:11 Artificial Tears Op Soln 15 Ml Bottle EACH EYE QID PRN Dry Eye(s) Atorvastatin Calcium 10 mg 09/17/20 09:00 09/29/20 10:09 Atorvastatin 10 Mg Tablet PO 10 mg DAILY KATHLEEN Administration Budesonide/Formoterol Fumarate 2 puff 09/16/20 20:00 09/29/20 10:03 Budesonide/Form 160-4.5 Mcg (*Sp) INHALATION 2 puff Q12HRT KATHLEEN Administration Bupropion HCl 75 mg 09/17/20 09:00 09/29/20 10:09 Bupropion Hcl 75 Mg Tablet PO 75 mg DAILY KATHLEEN Administration Docusate Sodium 100 mg 09/26/20 09:00 09/29/20 10:09 Docusate Sodium 100 Mg Capsule PO 100 mg Q12HR KATHLEEN Administration Furosemide 40 mg 09/17/20 09:00 09/29/20 10:09 Furosemide 40 Mg Tablet PO 40 mg DAILY KATHLEEN Administration Heparin Sodium (Porcine) 5,000 units 09/16/20 22:00 09/29/20 05:43 Heparin Sodium 5,000 Units/Ml Vial SUB-Q 5,000 units Q8HR KATHLEEN Administration Megestrol Acetate 400 mg 09/20/20 09:00 09/29/20 10:09 Megestrol Acetate (*Chemo) Oral Susp 40 Mg/Ml Syr PO 400 mg QAM KATHLEEN Administration Melatonin 3 mg 09/16/20 19:28 Melatonin 3 Mg Tablet PO HS PRN Sleep Metoprolol Succinate 50 mg 09/17/20 09:00 09/29/20 10:09 Metoprolol Succinate Ext Rel 50 Mg Tabcr PO 50 mg DAILY KATHLEEN Administration Montelukast Sodium 10 mg 09/27/20 21:00 09/28/20 20:19 Montelukast Sodium 10 Mg Tablet PO 10 mg HS KATHLEEN Administration Ondansetron HCl 4 mg 09/16/20 16:51 Ondansetron Hcl Odt 4 Mg Tablet PO Q8H PRN Nausea Pantoprazole Sodium 40 mg 09/17/20 09:00 09/29/20 10:10 Pantoprazole 40 Mg Tablet PO 40 mg QAM KATHLE[facility] Administration Polyethylene Gly
[2020-09-29] MEDS: ACETAMINOPHEN 500 MG TABLET PO (13:12)
[2020-09-29 14:00] VITALS: BP 146/62; PULSE 78; RESP 20; TEMP 36.6; O2SAT 100
[2020-09-29 21:57] VITALS: BP 134/37; PULSE 75; RESP 20; TEMP 36.3; O2SAT 100
[2020-09-29] MEDS: MONTELUKAST SODIUM 10 MG TABLET PO (22:06)
[2020-09-30] MEDS: HEPARIN SODIUM 5,000 UNITS/ML VIAL 5000 UNITS SUB-Q (05:45)
[2020-09-30 06:00] VITALS: BP 153/75; PULSE 76; RESP 20; TEMP 36.6; O2SAT 100
[2020-09-30] MEDS: ALBUTEROL SULFATE (*SP) AEROSOL 1 PUFF 2 PUFF INHALATION (06:09)
[2020-09-30 08:42] VITALS: PULSE 78
[2020-09-30] MEDS: PANTOPRAZOLE 40 MG TABLET PO (08:42)
[2020-09-30] MEDS: METOPROLOL SUCCINATE EXT REL 50 MG TABCR PO (08:42)
[2020-09-30] MEDS: FUROSEMIDE 40 MG TABLET PO (08:42)
[2020-09-30] MEDS: MEGESTROL ACETATE (*CHEMO) ORAL SUSP 40 MG/ML SYR 400 MG PO (08:42)
[2020-09-30] MEDS: ATORVASTATIN 10 MG TABLET PO (08:43)
[2020-09-30] MEDS: buPROPion HCL 75 MG TABLET PO (08:43)
[2020-09-30 21:15] LABS: SARS-CoV-2 RNA PCR Negative
--- NOTE | 2020-10-02 12:51 | PM.DS ---
DS: Admitting Diagnosis Admitting Diagnosis Admitting Diagnosis: Subarachnoid Hemorrhage ADMISSION FUNCTION: 85 years old right-handed female admitted to the rehab floor of [facility] with the primary rehab impairment category of brain dysfunction that is nontraumatic in nature and etiological diagnosis of subarachnoid hemorrhage in addition to the comorbid conditions of 1. Bronchial asthma 2. COPD 3. Gout 4. Hypertension 5. Documented left MCA aneurysm by CTA 6. Craniotomy for clipping of the aneurysm and postoperatively requiring intubation modified barium swallow and continuation of pneumo top 60 mg q.4 hours for 1 week Eating [Set Up Only] Oral Care partial assistance Toileting Hygiene partial assisted Shower/Bathing partial assistance Upper Body Dressing partial assistance Lower Body Dressing sustention [place] Footwear substantial Rolling Left and Right supervision Sit to Lying unable Lying to Sitting supervision Sit to Stand partial assistance Bed to Chair Transfers partial assistance Toilet Transfers partial assisted Car Transfers partial assistance Walking 10' partial assisted Walking 50' with Two Turns unable Walking 150' unable Curb or Step partial assist 4 Steps unable 12 Steps unable Picking Up Object super [Wheelchair Mobility 50'] partial expanded function dental assistant [Wheelchair Mobility 150'] unable GOALS: Eating [INDEPENDENT] Oral Care [INDEPENDENT] Toileting Hygiene set up Shower/Bathing set up Upper Body Dressing set up Lower Body Dressing set up [place] Footwear set up Rolling Left and Right [INDEPENDENT] chair transfers supervision toilet transfers supervision and car transfers supervision Sit to Lying [INDEPENDENT] Walking 150' unable walking 50ft with 2 turns supervision and walking 10ft on uneven surfaces supervision Curb or Step supervision 4 steps patient unable 12 Steps not applicable Picking Up Object [INDEPENDENT] [Wheelchair Mobility 50'] [INDEPENDENT] [Wheelchair Mobility 150'] supervision DISCHARGE PERFORMANCE: Eating set up Oral Care [INDEPENDENT] Toileting Hygiene supervision Shower/Bathing supervision Upper Body Dressing set up Lower Body Dressing supervision [place] Footwear supervision Rolling Left and Right [INDEPENDENT] Sit to Lying [INDEPENDENT] Lying to Sitting [INDEPENDENT] Sit to Stand set up Bed to Chair Transfers set up Toilet Transfers set of Car Transfers [INDEPENDENT] Walking 10' [INDEPENDENT] Walking 50' with Two Turns [INDEPENDENT] Walking 150' [INDEPENDENT] Curb or Step supervision 4 Steps [INDEPENDENT] 12 Steps [INDEPENDENT] Picking Up Object [INDEPENDENT] [Wheelchair Mobility 50'] partial expanded function dental assistant [Wheelchair Mobility 150'] unable during the entire hospitalization patient had no fall her condition improved and she was discharged to home with a home health assistance The patient had [no falls]. DS: Summary Time Spent with Patient Time attestation: Total time spent providing and/or coordinating discharge services: Discharge Plan Discharge Discharging Clinician: Brett Bourgeois Patient Disposition: [facility] Activity: no straining and no driving Diet: regular Discharge Instructions: CT OF HEAD WO CONTRAST IN 4-[address]. DO NOT LIFT ANYTHING OVER 20 POUNDS. NO PUSHING OR PULLING. NO BENDING OR TWISTING AT THE WAIST. WALK SHORT DISTANCES. MAY SHOWER WITH INCISION COVERED. AFTER SHOWER LEAVE WOUND OPEN TO AIR. CALL DR. MO HOAGN AT [phone] WITH ANY QUESTIONS OR CONCERNS. CALL FOR TEMP >101.5, HAVE ANY DRAINAGE FROM NOSE, EARS. CALL IF SEVERE HEADACHE GETS WORSE OR DOES NOT GET BETTER WITH MEDICINE. NO ASPIRIN OR NSAIDS UNTIL CLEARED BY DR. HASSAN. Per Care Coordination: Home Health services have been arranged through [facility]. [facility] can be contacted at [phone]. Please fax discharge instructions to [facility] at [phone]. Pat
== END 2020-09-30 13:04 | DRG 57 ==
PROVIDERS: Admitting Provider Psychiatry & Neurology Neurology; PCP Internal Medicine Geriatric Medicine; Visit Provider Psychiatry & Neurology Neurology
DX: I69.091 Dysphagia following nontraumatic subarachnoid hemorrhage (principal); I69.020 Aphasia following nontraumatic subarachnoid hemorrhage; Z48.811 Encounter for surgical aftercare following surgery on the nervous system; I67.1 Cerebral aneurysm, nonruptured; I10 Essential (primary) hypertension; F32.9 Major depressive disorder, single episode, unspecified; J44.9 Chronic obstructive pulmonary disease, unspecified; M81.0 Age-related osteoporosis without current pathological fracture; M10.9 Gout, unspecified; R06.89 Other abnormalities of breathing; Z97.8 Presence of other specified devices; R32 Unspecified urinary incontinence
CPT/HCPCS: 36415; 71045; 80048; 85025; 87635; 92507; 92523; 92526; 92610; 92611; 94640; 97110; 97112; 97116; 97161; 97165; 97530; 97535; A9270; C9803; J1644; U0003